=== PATIENT | female | born 1950 | race Caucasian/White ===

== ENCOUNTER 2021-07-12 08:59 | Inpatient (IN) ==
[2021-07-12] MEDS ORDERED: *HR* HYDROmorphone (PF) 1 MG/ML SYRINGE IVP PRN (09:21)
[2021-07-12] MEDS ORDERED: Famotidine 20 MG/2 ML VIAL IVP ONE (09:21)
[2021-07-12] MEDS ORDERED: *HR* OxyCODONE Immed Rel 5 MG TABLET PO PRN (09:21)
[2021-07-12] MEDS ORDERED: Acetaminophen IV 1,000 MG/100 ML BAG IVPB ONE (09:21)
[2021-07-12] MEDS ORDERED: *HR* Labetalol 20 MG/4 ML SYRINGE IVP PRN (09:21)
[2021-07-12] MEDS ORDERED: Pregabalin 75 MG CAPSULE PO ONE (09:21)
[2021-07-12] MEDS ORDERED: cefOXitin 2,000 MG in 0.9 % Sodium Chloride 20 ML IVP ONE (09:24)
[2021-07-12] MEDS ORDERED: Ringers Solution, Lactated 1,000 ML IVC SCH (09:30)
[2021-07-12] MEDS ORDERED: *HR* Rocuronium Bromide 50 MG/5 ML VIAL ONE (10:19)
[2021-07-12] MEDS ORDERED: Ketamine HCL *QUVA* 50mg (1mL) SYRINGE ONE (10:19)
[2021-07-12] MEDS ORDERED: Ondansetron 4 MG/2 ML VIAL ONE (10:19)
[2021-07-12] MEDS ORDERED: Lidocaine -MPF 2% 5 ML VIAL ONE (10:19)
[2021-07-12] MEDS ORDERED: *HR* FentaNYL (PF) 100 MCG/2 ML VIAL ONE (10:19)
[2021-07-12] MEDS ORDERED: *HR* Propofol 200 MG/20 ML VIAL IVP ONE (10:19)
[2021-07-12] MEDS ORDERED: Lidocaine HCL 4 ML Topical Solution (Laryng-O-Jet Kit Sterile Pak) TP ONE (10:19)
[2021-07-12] MEDS ORDERED: *HR* Succinylcholine 200 MG/10 ML VIAL IVP ONE (10:19)
[2021-07-12 10:43] LABS: Basophils # 0.1 K/mcL (0.0-0.2); Basophils % 0.5 %; Eosinophils # 0.2 K/mcL (0.0-0.6); Eosinophils % 1.5 %; Hematocrit 44.4 % (35.3-44.9); Hemoglobin 14.3 g/dL (11.5-15.4); Immature Granulocytes % 0.6 % (0-4); Lymphocytes # 3.3 K/mcL (0.6-4.6); Lymphocytes % 32.2 %; Mean Corpuscular HGB Conc 32.2 g/dL (31.6-35.5); Mean Corpuscular Hemoglobin 28.4 pg (28.0-33.3); Mean Corpuscular Volume 88.3 fL (83.0-100.0); Mean Platelet Volume 10.4 fL (9.4-12.4); Monocytes # 0.8 K/mcL (0.0-1.3); Neutrophils # 5.9 K/mcL (1.6-8.9); Platelet Count 232 K/mcL (140-400); Red Blood Count 5.03 M/mcL (3.82-4.97); Red Cell Distribution Width 13.1 % (11.5-14.5); Segmented Neutrophils % 57.2 %; White Blood Count 10.3 K/mcL (4.3-11.1)
[2021-07-12] MEDS ORDERED: *HR* Phenylephrine 10 MG/ML VIAL ONE (11:01)
[2021-07-12] MEDS ORDERED: Sugammadex Sodium 200 MG/2 ML VIAL IV ONE (12:20)
[2021-07-12] MEDS ORDERED: Morphine Sulfate Oral CONC 10 MG/0.5 ML ORAL.SYG SL PRN (13:57)
[2021-07-12] MEDS ORDERED: D5% in Water 1,000 ML IVC PRN (13:57)
[2021-07-12] MEDS ORDERED: Dextrose 4 GM Chewable Tablets PO PRN ×2 (13:57)
[2021-07-12] MEDS ORDERED: *HR* Dextrose 50 % in Water (Syg) 50 ML SYRINGE IVP PRN (13:57)
[2021-07-12] MEDS ORDERED: Ondansetron 4 MG/2 ML VIAL IVP PRN (13:57)
[2021-07-12] MEDS ORDERED: Naloxone 0.4 MG/ML INJ IVP PRN (13:57)
[2021-07-12] MEDS: cefOXitin 1,000 MG in 0.9 % Sodium Chloride 10 ML IVP SCH ×2 (17:05→23:53)
[2021-07-12] MEDS: 0.9 % Sodium Chloride 1,000 ML IVC SCH (17:05)
[2021-07-12] MEDS: carvediloL 25 MG TABLET PO SCH (17:06)
[2021-07-12] MEDS ORDERED: Insulin LISPRO 300 UNITS/3 ML VIAL SUBQ SCH (18:00)
[2021-07-12] MEDS: Insulin LISPRO 300 UNITS/3 ML VIAL SUBQ SCH (21:13)
[2021-07-13 03:05] LABS: Basophils % 0.1 %; Hematocrit 31.8 % (35.3-44.9); Immature Granulocytes % 0.6 % (0-4); Lymphocytes % 22.1 %; Mean Corpuscular HGB Conc 31.1 g/dL (31.6-35.5); Mean Corpuscular Hemoglobin 28.1 pg (28.0-33.3); Mean Corpuscular Volume 90.3 fL (83.0-100.0); Monocytes # 1.1 K/mcL (0.0-1.3); Monocytes % 8.4 %; Neutrophils # 9.4 K/mcL (1.6-8.9); Platelet Count 216 K/mcL (140-400); Red Blood Count 3.52 M/mcL (3.82-4.97); Segmented Neutrophils % 68.8 %; White Blood Count 13.6 K/mcL (4.3-11.1)
[2021-07-13 03:12] LABS: Hemoglobin 9.9 g/dL (11.5-15.4)
[2021-07-13 03:21] LABS: BUN/Creatinine Ratio 26 (6-26); Blood Urea Nitrogen 23 mg/dL (8-23); Carbon Dioxide 22 mEq/L (23-29); Chloride 98 mEq/L (98-107); Glucose 222 mg/dL (70-105); Osmolality,Calculated 279 (280-300); Potassium 3.7 mEq/L (3.5-5.1); Sodium 129 mEq/L (136-145); eGFR For African Americans > 60 (> 60); eGFR For Non-African Americans > 60 (> 60)
[2021-07-13] MEDS: 0.9 % Sodium Chloride 1,000 ML IVC SCH (03:42)
[2021-07-13] MEDS: *HR* HYDROcodone/Acet 5/325 mg TABLET PO PRN (03:44)
[2021-07-13] MEDS: cefOXitin 1,000 MG in 0.9 % Sodium Chloride 10 ML IVP SCH (08:42)
[2021-07-13] MEDS: Insulin LISPRO 300 UNITS/3 ML VIAL SUBQ SCH ×4 (08:49→21:39)
[2021-07-13] MEDS: carvediloL 25 MG TABLET PO SCH (08:50)
[2021-07-13] MEDS ORDERED: Ketorolac 30 MG/ML VIAL IVP ONE (08:54)
[2021-07-13] MEDS: Acetaminophen 325 MG TABLET PO SCH ×3 (13:09→16:06)
[2021-07-13] MEDS: *HR* Heparin 5,000 UNIT/ML VIAL SQ SCH ×2 (13:22→16:48)
[2021-07-14] MEDS: Acetaminophen 325 MG TABLET PO SCH ×3 (00:26→12:48)
[2021-07-14] MEDS: *HR* HYDROcodone/Acet 5/325 mg TABLET PO PRN (02:45)
[2021-07-14] MEDS: *HR* Heparin 5,000 UNIT/ML VIAL SQ SCH (05:17)
[2021-07-14] MEDS: Insulin LISPRO 300 UNITS/3 ML VIAL SUBQ SCH ×2 (08:48→11:29)
[2021-07-14 11:42] VITALS: BP 123/68; PULSE 57; TEMP 98.3; O2SAT 97
== END 2021-07-14 13:37 | disposition home or self-care (01) | DRG 328 ==
LOC: SAMDAY 08:59 → 3ANU 13:55
PROVIDERS: ADMIT Surgery; ATTEND Surgery